=== PATIENT | female | born 1995 | race Two or more races ===

== ENCOUNTER 2023-08-05 18:04 | Emergency (ER) | payer OTHER ==
[~2023-08-05] VITALS: Ht 170.2 cm; Wt 65.8 kg
[2023-08-05 18:26] VITALS: TEMP 98.2
[2023-08-05] MEDS ORDERED: LORAZEPAM 1 MG TABLET ONE (19:36)
[2023-08-05] MEDS: LORAZEPAM 1 MG TABLET PO ONE (19:40)
[2023-08-05] MEDS ORDERED: ALPR0.5T PO (20:44)
[2023-08-05 21:09] VITALS: BP 124/86; O2SAT 98
== END 2023-08-05 21:10 | disposition home or self-care (01) ==
LOC: ER 18:04
DX: F41.1 Generalized anxiety disorder (principal); F41.0 Panic disorder [episodic paroxysmal anxiety]